=== PATIENT | male | born 1960 | race African-American/Black ===

== ENCOUNTER → 2019-09-29 | Outpatient (CLI) | payer OTHER | LOC: CAT 14:54 | DX: I63.9 Cerebral infarction, unspecified (principal); J34.89 Other specified disorders of nose and nasal sinuses ==

== ENCOUNTER 2021-09-28 06:58 | Emergency (ER) | payer OTHER ==
[~2021-09-28] VITALS: Ht 182.9 cm; Wt 90.7 kg
[2021-09-28] MEDS ORDERED: PRINIVIL40 MG PO (07:03)
[2021-09-28 09:31] VITALS: BP 138/80
== END 2021-09-28 09:31 | disposition home or self-care (01) ==
LOC: ER 06:58
DX: T78.3XXA Angioneurotic edema, initial encounter (principal); I10 Essential (primary) hypertension